=== PATIENT | male | born 1955 | race Caucasian/White ===

== ENCOUNTER 2017-08-19 09:00 | Emergency (ER) | payer MEDICARE ==
[2017-08-19] MEDS ORDERED: TETRAHYDROZOLINE HCL OPHTH SOL 1 DROP OPHTH ONE (09:01)
[2017-08-19] MEDS ORDERED: TETRACAINE HCL 0.5% OPHTH SOL 1 DROP OPHTH ONE (09:01)
[2017-08-19 09:29] VITALS: BP 139/76; TEMP 97.9; O2SAT 99
--- NOTE | 2017-08-19 09:41 | ED.PDOC ---
History of Present Illness - General Chief Complaint: Eye Problems Stated Complaint: left eye red Time Seen by Provider: 08/19/17 09:41 Source: patient Exam Limitations: no limitations - History of Present Illness Initial Comments: Marshall Tlobert Jr. 62 y/o male stated that left eye had been red,slightly swelled up and with dull ache and photophobia for the last 3 days and also has blurry vision.Thinks he might have contacted infection on his eye from the apt. he is staying;denies history of trauma. Denies pain in his nose Timing/Duration: other - see hpi EENT Location: eye (L) Prearrival Treatment: no prearrival treatment Presenting Symptoms: red eye Improving Factors: nothing Worsening Factors: nothing Associated Symptoms: other - see hpi Allergies/Adverse Reactions: Allergies Penicillins Allergy (Verified 08/19/17 09:19) Home Medications: Ambulatory Orders Bacitracin (Ophthalmic) [Bacitracin] 500 unit OP TID 10 Days #1 tube 08/19/17 Valacyclovir HCl [Valtrex] 1 gm PO BID 10 Days #20 tab 08/19/17 Review of Systems - Review of Systems Constitutional: States: no symptoms reported EENTM: States: see HPI Respiratory: States: no symptoms reported Cardiology: States: no symptoms reported Gastrointestinal/Abdominal: States: no symptoms reported Genitourinary: States: no symptoms reported Musculoskeletal: States: no symptoms reported All other Systems: Reviewed and Negative, No Change from Baseline Past Medical History (General) - Patient Medical History Hx Seizures: No Hx Stroke: No Hx Dementia: No Hx Asthma: No Hx of COPD: No Hx Cardiac Disorders: No Hx Congestive Heart Failure: No Hx Pacemaker: No Hx Hypertension: Yes - Takes Lisinopril Hx Thyroid Disease: No Hx Diabetes: Yes - Type II, takes insulin Hx Gastroesophageal Reflux: No Hx Renal Disease: No Hx Cancer: No Hx of HIV: No Hx Hepatitis C: No Hx MRSA: No Surgical History: other - orif right leg fracture teenager - Vaccination History Hx Tetanus, Diphtheria Vaccination: Yes Hx Influenza Vaccination: Yes Hx Pneumococcal Vaccination: Yes Immunizations Up to Date: Yes - Social History Hx Tobacco Use: Yes Cigars Per Day: 1 Hx Alcohol Use: Yes - 1-2 beers per week Hx Substance Use: No Hx Substance Use Treatment: No Hx Depression: No Feels Threatened In Home Enviroment: No Feels Threatened In a Relationship: No Hx Physical Abuse: No Hx Emotional Abuse: No Hx Suspected Abuse: No - Activities of Daily Living Hospice Agency (if applicable):: None - Triage Comment ED Triage Comment: Pt c/o of worsening left eye pain and drainage. Has had eye pain and redness for 3 days. c/o drainage from left eye. Family Medical History - Family History Mother Family History: Unknown Physical Exam - Physical Exam General Appearance: Alert, Comfortable, No apparent distress Eye Exam: left other - redness/slight swelling lower lids +fluorescein uptake VA -20 /100 both eyes Ear Exam: bilateral ear: auricle normal, canal normal, TM normal Nasal Exam: normal inspection Throat Exam: normal mouth inspection, pharynx normal Neck: non-tender, supple Cardiovascular/Respiratory: regular rate, rhythm, no M/R/G, normal peripheral pulses Abdominal Exam: non-tender, no organomegaly Neurologic: alert, oriented x 3 Skin Exam: normal color, warm/dry, rash - no vesicular rashes noted around eye left Progress - Progress Progress: 08/19/17 10:31 Vital Signs - 8 hr 08/19/17 09:06 Temperature 97.9 F Pulse Rate [ 74 Monitor] Respiratory 18 Rate Blood Pressure 139/76 [Left Arm] O2 Sat by Pulse 99 Oximetry Explained to patient eye findings left side that it might be a viral infection of the eye needing follow up with internet ecommerce specialist. Departure - Departure Clinical Impression: Conjunctivitis Qualifiers: Conjunctivitis type: unspecified Laterality: left Qualified Code(s): H10.9 - Unspecified conjunctivitis Time of Disposition: 10:33 Disposition: Discharge to Home or Self Care Condition: Fair Departure Forms: ED Discharge - Pt. Copy, Patient Portal Self Enrollment Instructions: DI for Red Eye Referrals: Roscoe Strickland MD [Primary Care Provider] - 1-2 Weeks Prescriptions: Bacitracin (Ophthalmic) [Bacitracin] 500 unit OP TID 10 Days #1 tube Valacyclovir HCl [Valtrex] 1 gm PO BID 10 Days #20 tab Home Medications: Ambulatory Orders Bacitracin (Ophthalmic) [Bacitracin] 500 unit OP TID 10 Days #1 tube 08/19/17 Valacyclovir HCl [Valtrex] 1 gm PO BID 10 Days #20 tab 08/19/17 Additional Instructions: Need to follow up with internet ecommerce specialist or primary Md for referral to internet ecommerce specialist [facility]
== END 2017-08-19 10:43 | disposition home or self-care (01) ==
LOC: ER 09:00
DX: H10.9 Unspecified conjunctivitis (principal); I10 Essential (primary) hypertension; E11.9 Type 2 diabetes mellitus without complications; F17.210 Nicotine dependence, cigarettes, uncomplicated; Z79.4 Long term (current) use of insulin; Z79.899 Other long term (current) drug therapy

== ENCOUNTER 2018-12-20 08:52 | Emergency (ER) | payer MEDICARE, MEDICAID ==
[2018-12-20] MEDS ORDERED: INSULIN DETEMIR 100 UNITS/ML PEN SUBCU ONE (09:10)
[2018-12-20] MEDS ORDERED: INSULIN, REG.(HUMAN) 100 U/ML VIAL SUBCU ONE ×2 (09:10→11:46)
[2018-12-20] MEDS ORDERED: SODIUM CHLORIDE 0.9% 1000ML 1,000 ML IVS ONE (09:10)
--- NOTE | 2018-12-20 11:43 | ED.PDOC ---
History of Present Illness - General Chief Complaint: General Stated Complaint: out of Insulin,feels bad Time Seen by Provider: 12/20/18 09:05 Source: patient Exam Limitations: no limitations - History of Present Illness Initial Comments: the patient is a 63-year-old male presenting to emergency room by ambulance secondary to feeling poorly for the last 2 days. He has not been taking his insulin because he thinks something is wrong with it. He does have a history of some anxiety and paranoia. It looks like his Lantus has likely precipitated in the heat. He does not appear in DKA. He is in no acute distress. He is alert pleasant and cooperative. Blood sugars were in the 380s with EMS. No history of DKA with this patient. No vomiting. No altered mental status. Timing/Duration: 24 hours Severity: mild Improving Factors: nothing Worsening Factors: nothing Associated Symptoms: loss of appetite, malaise Allergies/Adverse Reactions: Allergies Penicillins Allergy (Verified 08/19/17 09:19) Home Medications: Ambulatory Orders Alprazolam [Alprazolam ER] 2 mg PO PRN 12/20/18 Atorvastatin Calcium [Lipitor] 20 mg PO DAILY 12/20/18 Hydrocodone-Acetaminophen [Hydrocodone Bitartrate/AC 7.5-325 mg] 1 tab PO PRN 12/20/18 Insulin Glargine 100U/ml [Lantus] 20 unit SUBCU DAILY 12/20/18 Insulin Glargine 100U/ml [Lantus] 20 unit SUBCU DAILY #1 vial 12/20/18 Lisinopril 10 mg PO DAILY 12/20/18 Review of Systems - Review of Systems Constitutional: States: malaise EENTM: States: no symptoms reported Respiratory: States: no symptoms reported Cardiology: States: no symptoms reported Gastrointestinal/Abdominal: States: no symptoms reported Genitourinary: States: no symptoms reported Musculoskeletal: States: no symptoms reported Skin: States: no symptoms reported Neurological: States: no symptoms reported Endocrine: States: no symptoms reported All other Systems: No Change from Baseline Past Medical History (General) - Patient Medical History Hx Seizures: No Hx Stroke: No Hx Dementia: No Hx Asthma: No Hx of COPD: No Hx Cardiac Disorders: No Hx Congestive Heart Failure: No Hx Pacemaker: No Hx Hypertension: Yes - Takes Lisinopril Hx Thyroid Disease: No Hx Diabetes: Yes - Type II, takes insulin Hx Gastroesophageal Reflux: No Hx Renal Disease: No Hx Cancer: No Hx of HIV: No Hx Hepatitis C: No Hx MRSA: No Surgical History: no surgical history - Vaccination History Hx Tetanus, Diphtheria Vaccination: Yes Hx Influenza Vaccination: No Hx Pneumococcal Vaccination: - unknown - Social History Hx Tobacco Use: Yes Hx Alcohol Use: Yes - 1-2 beers per week Hx Substance Use: No Hx Substance Use Treatment: No Hx Depression: No Hx Physical Abuse: No Hx Emotional Abuse: No Hx Suspected Abuse: No Family Medical History - Family History Mother Family History: Unknown Physical Exam - Physical Exam General Appearance: Alert, Comfortable, No apparent distress, Unkempt, Other - the patient is then Eye Exam: bilateral normal Ears, Nose, Throat: hearing grossly normal, normal ENT inspection Neck: full range of motion, supple Respiratory: lungs clear, normal breath sounds, no respiratory distress, no accessory muscle use Cardiovascular/Chest: normal peripheral pulses, no edema, other - regular rate Peripheral Pulses: radial,right: 2+, radial,left: 2+, dorsalis pedis,right: 2+, dorsalis pedis,left: 2+ Gastrointestinal/Abdominal: non tender, soft Rectal Exam: deferred Back Exam: no CVA tenderness, no vertebral tenderness Extremity: normal range of motion, non-tender, no pedal edema Neurologic: food production associate II-XII nml as tested, alert, oriented x 3 Skin Exam: normal color Comments: Vital Signs - 24 hr 12/20/18 12/20/18 12/20/18 09:02 10:04 11:00 Temperature 96.8 F L Pulse Rate [ 85 71 78 Left Brachial] Respiratory 20 20 16 Rate Blood Pressure 173/89 145/98 133/74 [Left Arm] O2 Sat by Pulse 99 97 96 Oximetry Progress - Progress Progress: 12/20/18 11:42 the patient is a 63-year-old male presenting to the emergency room secondary to feeling poorly due to hyperglycemia because he has not been taking his insulin. He received a liter of IV fluids and several doses of insulin here. Blood sugars are trending down. He will be written for a new vial of Lantus and he needs to try and keep it in a climate controlled setting. ER warnings were given. keep routine follow-up with primary care doctor. - Results/Orders Results/Orders: Laboratory Tests 12/20/18 12/20/18 12/20/18 09:21 09:21 10:00 WBC 11.2 H RBC 4.94 Hgb 15.8 Hct 46.3 MCV 93.7 MCH 32.0 H MCHC 34.1 RDW 13.8 Plt Count 247 MPV 8.0 Absolute Neuts (auto) 7.50 H Absolute Lymphs (auto) 2.40 Absolute Monos (auto) 1.00 H Absolute Eos (auto) 0.30 Absolute Basos (auto) 0.10 Neutrophils % 66.6 Lymphocytes % 21.4 Monocytes % 8.7 Eosinophils % 2.4 Basophils % 0.9 Sodium 137 Potassium 4.1 Chloride 99 L Carbon Dioxide 26 Anion Gap 16.1 BUN 23 H Creatinine 1.00 BUN/Creatinine Ratio 23.0 H POC Glucose 294 H Random Glucose 363 H Serum Osmolality 292.2 Calcium 9.5 Total Bilirubin 0.5 AST 23 ALT 19 Alkaline Phosphatase 87 Serum Total Protein 8.3 H Albumin 4.8 Globulin 3.5 Albumin/Globulin Ratio 1.4 Departure - Departure Clinical Impression: Hyperglycemia Disposition: Discharge to Home or Self Care Condition: Fair Departure Forms: ED Discharge - Pt. Copy, Patient Portal Self Enrollment Diet: diabetic diet Activity: increase activity as tolerated Referrals: Roscoe Strickland MD [Primary Care Provider] - 1-2 Weeks Prescriptions: Insulin Glargine 100U/ml [Lantus] 20 unit SUBCU DAILY #1 vial Home Medications: Ambulatory Orders Alprazolam [Alprazolam ER] 2 mg PO PRN 12/20/18 Atorvastatin Calcium [Lipitor] 20 mg PO DAILY 12/20/18 Hydrocodone-Acetaminophen [Hydrocodone Bitartrate/AC 7.5-325 mg] 1 tab PO PRN 12/20/18 Insulin Glargine 100U/ml [Lantus] 20 unit SUBCU DAILY 12/20/18 Insulin Glargine 100U/ml [Lantus] 20 unit SUBCU DAILY #1 vial 12/20/18 Lisinopril 10 mg PO DAILY 12/20/18 Additional Instructions: the patient is a 63-year-old male presenting to the emergency room secondary to feeling poorly due to hyperglycemia because he has not been taking his insulin. He received a liter of IV fluids and several doses of insulin here. Blood sugars are trending down. He will be written for a new vial of Lantus and he needs to try and keep it in a climate controlled setting. ER warnings were given. keep routine follow-up with primary care doctor.
[2018-12-20 12:04] VITALS: BP 129/64; TEMP 97.3; O2SAT 98
== END 2018-12-20 12:03 | disposition home or self-care (01) ==
LOC: ER 08:52
DX: E11.65 Type 2 diabetes mellitus with hyperglycemia (principal); I10 Essential (primary) hypertension; Z79.4 Long term (current) use of insulin; Z79.899 Other long term (current) drug therapy; Z88.0 Allergy status to penicillin
CPT/HCPCS: 36415; 36416; 80053; 82948; 85025; J1815; J7030